=== PATIENT | female | born 1955 | race Caucasian/White ===

== ENCOUNTER 2020-02-08 07:12 | Emergency (ER) | payer SELFPAY ==
[~2020-02-08] VITALS: Ht 170.2 cm; Wt 90.7 kg
[2020-02-08 07:18] VITALS: Ht 170.2 cm; Wt 90.7 kg
[2020-02-08 11:20] VITALS: BP 135/76
== END 2020-02-08 11:20 | disposition home or self-care (01) ==
LOC: ED 07:12
DX: R22.43 Localized swelling, mass and lump, lower limb, bilateral (principal)
CPT/HCPCS: Q0092